=== PATIENT | female | born 1950 | race Caucasian/White ===

== ENCOUNTER 2020-05-03 10:40 | Emergency (ER) | payer MEDICARE, BC, OTHER ==
[~2020-05-03] VITALS: Ht 162.6 cm; Wt 75.0 kg
[2020-05-03] MEDS ORDERED: morphine 4 MG/ML inj SYRINge IM ONE (11:30)
[2020-05-03] MEDS ORDERED: ondansetron 4mg rapidly disintigrating tab PO ONE (11:30)
[2020-05-03] MEDS ORDERED: TRAM50TA2 PO (12:41)
[2020-05-03] MEDS ORDERED: IBUP-1984 PO (12:41)
[2020-05-03 12:57] VITALS: BP 205/108
== END 2020-05-03 13:10 | disposition home or self-care (01) ==
LOC: ER 10:40
DX: M25.432 Effusion, left wrist (principal); Z98.890 Other specified postprocedural states; Z88.0 Allergy status to penicillin; Z88.2 Allergy status to sulfonamides; Z88.5 Allergy status to narcotic agent; Z88.8 Allergy status to other drugs, medicaments and biological substances; Z79.899 Other long term (current) drug therapy; W03.XXXA Other fall on same level due to collision with another person, initial encounter; Y93.89 Activity, other specified; Y92.89 Other specified places as the place of occurrence of the external cause; Y99.8 Other external cause status
CPT/HCPCS: 29125; 73110; 96372; 99283; J2270

== ENCOUNTER 2024-03-12 11:06 | Emergency (ER) | payer MEDICARE, BC, OTHER ==
[~2024-03-12] VITALS: Ht 160 cm; Wt 64.0 kg
[~2024-03-12 11:06] MED LIST: ASPI81TA53 PO; ATOR10TA PO; BUPR-564 PO; CHLO25TA10 PO; CLON0.1T2 PO; HYDR-3972 PO; LOP12.5T PO; METF-438 PO; PANT40TA54 PO
[2024-03-12 13:06] LABS: BILIRUBIN,URINE SMALL (Neg); CLARITY,URINE CLOUDY (Clear); COLOR,URINE YELLOW (Yellow); GLUCOSE, URINE NEGATIVE (Neg); KETONES,URINE NEGATIVE (Neg); LEUKOCYTE ESTERASE ,URINE MODERATE (Neg); NITRITES, URINE NEGATIVE (Neg); OCCULT BLOOD,URINE LARGE (Neg); PROTEIN,URINE 100 mg/dl (Neg)
[2024-03-12 13:24] LABS: UA COLLECTION TYPE CLN CATCH MIDSTREAM
[2024-03-12 13:33] LABS: RBC,URINE TNTC /HPF (0-2)
[2024-03-12 13:34] LABS: BACTERIA,URINE 2+ /HPF (Neg); WBC,URINE 50-100 /HPF (0-4)
[2024-03-12 13:35] LABS: SQUAMOUS EPITHELIAL CELL,UR FEW /LPF (FEW); TRANSITIONAL EPI CELLS,URINE FEW /HPF
[2024-03-12] MEDS ORDERED: CEPH-585 PO (13:39)
[2024-03-12] MEDS: cephalexin 250mg capsule PO ONE (14:00)
[2024-03-12] MEDS: cloNIDine 0.1 mg tablet PO ONE (14:00)
[2024-03-12 14:02] VITALS: BP 197/86; PULSE 54; RESP 16; TEMP 98.4; O2SAT 100
== END 2024-03-12 14:14 | disposition home or self-care (01) ==
LOC: ER 11:07
DX: N39.0 Urinary tract infection, site not specified (principal); I10 Essential (primary) hypertension; Z88.1 Allergy status to other antibiotic agents; Z88.2 Allergy status to sulfonamides; Z79.82 Long term (current) use of aspirin; Z79.899 Other long term (current) drug therapy; Z79.84 Long term (current) use of oral hypoglycemic drugs; Z98.890 Other specified postprocedural states
CPT/HCPCS: 81001; 87077; 87088; 87186; 99283

== ENCOUNTER 2024-08-27 13:50 | Emergency (ER) | payer MEDICARE, OTHER ==
[~2024-08-27] VITALS: Ht 158.8 cm; Wt 61.8 kg
[~2024-08-27 13:50] MED LIST changes: +CEPH-585 PO
[2024-08-27] MEDS ORDERED: CIPR-202 PO (14:32)
[2024-08-27] MEDS: ciprofloxacin 250mg tablet PO ONE (14:38)
[2024-08-27 14:45] VITALS: BP 132/86; PULSE 70; RESP 16; TEMP 97.9; O2SAT 98
== END 2024-08-27 14:48 | disposition home or self-care (01) ==
LOC: ER 13:50
DX: N39.0 Urinary tract infection, site not specified (principal); I10 Essential (primary) hypertension; Z88.0 Allergy status to penicillin; Z88.2 Allergy status to sulfonamides; Z88.5 Allergy status to narcotic agent; Z88.8 Allergy status to other drugs, medicaments and biological substances; Z98.890 Other specified postprocedural states; Z79.82 Long term (current) use of aspirin
CPT/HCPCS: 99283